=== PATIENT | female | born 1975 | race Caucasian/White ===

== ENCOUNTER → 2019-02-27 15:19 | Outpatient (CLI) | payer OTHER, MEDICAID, SELFPAY ==
--- NOTE | 2019-02-27 | DI.MRI.S_ITS ---
PROCEDURE: MR LUMBAR SPINE WO CON INDICATIONS: Lumbago with sciatica, left side TECHNIQUE: Noncontrast sagittal T1 spin echo and T2 fast echo, sagittal STIR, axial T1 and T2 fast spin echo through the lumbar spine. In cases with scoliosis, additional coronal T2 fast spin echo may be performed. COMPARISON: None. FINDINGS: Image quality: Diagnostic. Spinal Cord: The imaged portions of the spinal cord are normal in size and signal. The conus medullaris is normal in position. Paraspinous Soft Tissues: No paravertebral masses. Image soft tissues of the abdomen and pelvis are grossly unremarkable; however, not adequately evaluated on this exam. The abdominal aorta is normal in course and caliber. Bones: The vertebral body heights and marrow signal are within normal limits. There is no acute fracture or dislocation. Incidental note is made of a limbus vertebra and on anterosuperior L4 endplate. No suspicious osseous lesions are identified. Lower thoracic levels: No significant degenerative changes of the included lower thoracic levels are present. There is no central canal or neural foraminal narrowing at these levels. L1-L2: There is mild disc bulge without significant facet arthrosis. There is no central canal or neural foraminal narrowing. There is no central canal or neural foraminal stenosis. L2-L3: There is mild disc height loss and a diffuse disc bulge with possible early facet arthrosis. A small hemangioma involving the superior aspect of the L3 endplate probably is present. There is no central canal or neural foraminal narrowing. L3-L4: There is moderate disc height loss, moderate diffuse disc bulge, posterior disc osteophyte complex, disc desiccation, and mild facet arthropathy. There is associated mild central canal stenosis without significant neural foraminal narrowing. L4-L5: There is mild disc desiccation and diffuse disc bulge with [id number] facet arthropathy. There is no central canal stenosis or significant neural foraminal narrowing. L5-S1: There is mild diffuse disc bulge with a more focally prominent bulge/protrusion identified within the left foraminal region with an associated annular fissure. Mild facet arthrosis is present. There is no central canal stenosis. There is moderate left neural foraminal narrowing. No significant right neural foraminal stenosis is identified. IMPRESSION: 1. Reni-xl-tuvhlhld degenerative changes of the lower lumbar spine. No disc extrusions. 2. Small left foraminal disc protrusion with an associated annular fissure at L5-S1 results in moderate left neural foraminal narrowing. 3. Mild central canal stenosis at L3-4. Dictated by: Everett Frank M.D. on 02/27/2019 at 15:20 Approved by: Everett Frank M.D. on 02/27/2019 at 15:26
== END ==
PROVIDERS: PCP Nurse Practitioner Family; Visit Provider Nurse Practitioner Family
DX: M47.26 Other spondylosis with radiculopathy, lumbar region (principal); M47.27 Other spondylosis with radiculopathy, lumbosacral region; M51.17 Intervertebral disc disorders with radiculopathy, lumbosacral region; M48.061 Spinal stenosis, lumbar region without neurogenic claudication; M48.07 Spinal stenosis, lumbosacral region
CPT/HCPCS: 72148

== ENCOUNTER → 2022-04-25 15:17 | Outpatient (CLI) | payer OTHER, MEDICAID, SELFPAY ==
--- NOTE | 2022-04-25 15:23 | DI.RAD.S_ITS ---
PROCEDURE: XR THORACIC SPINE 3V INDICATIONS: Thoracic back pain TECHNIQUE: 3 views of the thoracic spine were acquired. COMPARISON: None. FINDINGS: Bones: No fractures or dislocations. No suspicious bony lesions. Visualized ribs are intact. Multilevel disc space narrowing and endplate osteophyte formation throughout the cervical and thoracic spine. Soft tissues: No paravertebral stripe thickening. IMPRESSION: Multilevel degenerative disc disease. No acute fracture. No osseous lesion. If symptoms and/or clinical suspicion for pathology persist, further assessment with repeat, or advanced imaging (e.g., CT, MRI, or bone scan) may be helpful for further assessment. Dictated by: Shawnee Brownlee M.D. on 04/26/2022 at 8:45 Approved by: Shawnee Brownlee M.D. on 04/26/2022 at 8:45
--- NOTE | 2022-04-25 15:23 | DI.RAD.S_ITS ---
PROCEDURE: XR HIP W PEL IF DONE RT 2V INDICATIONS: right hip pain TECHNIQUE: AP pelvis with lateral view(s) of the right hip(s). COMPARISON: None. FINDINGS: Bones: No fractures or dislocations. Pelvic ring appears intact. No suspicious bony lesions. Moderate right hip joint space narrowing. Mild left hip joint space narrowing. Mild right greater than left bilateral hip joint periarticular osteophyte formation. Soft tissues: The visualized bowel gas pattern is normal. No suspicious soft tissue calcifications. IMPRESSION: Bilateral hip osteoarthritis. No acute fracture. No osseous lesion. If symptoms and/or clinical suspicion for pathology persist, further assessment with repeat, or advanced imaging (e.g., CT, MRI, or bone scan) may be helpful for further assessment. Dictated by: Shawnee Brownlee M.D. on 04/25/2022 at 16:56 Approved by: Shawnee Brownlee M.D. on 04/25/2022 at 16:57
--- NOTE | 2022-04-25 15:23 | DI.RAD.S_ITS ---
PROCEDURE: XR LUMBAR SPINE MIN 4V INDICATIONS: Low Back Pain TECHNIQUE: 5 views of the lumbar spine were acquired, including bilateral oblique views. COMPARISON: None. FINDINGS: Bones: 5 nonrib-bearing vertebrae are present. There is normal bony alignment. No vertebral body compression fractures. No suspicious bony lesions. Pars interarticularis are not well seen. Multilevel disc space narrowing and endplate osteophyte formation. Facet hypertrophy throughout the mid and lower lumbar spine. Irregularity of the anterosuperior L4 endplate, possibly secondary to chronic Scheuermann's disease or remote trauma. Soft tissues: Overlying bowel gas pattern is normal. No suspicious soft tissue calcifications. IMPRESSION: 1. Multilevel degenerative disc and facet disease. 2. No acute fracture. No osseous lesion. If symptoms and/or clinical suspicion for pathology persist, further assessment with repeat, or advanced imaging (e.g., CT, MRI, or bone scan) may be helpful for further assessment. Dictated by: Shawnee Brownlee M.D. on 04/26/2022 at 8:44 Approved by: Shawnee Brownlee M.D. on 04/26/2022 at 8:45
== END ==
PROVIDERS: PCP Nurse Practitioner Family; Referring Provider Anesthesiology; Visit Provider Anesthesiology
DX: M16.0 Bilateral primary osteoarthritis of hip (principal); M47.26 Other spondylosis with radiculopathy, lumbar region; M51.16 Intervertebral disc disorders with radiculopathy, lumbar region; M51.14 Intervertebral disc disorders with radiculopathy, thoracic region; M25.551 Pain in right hip; M54.50 Low back pain, unspecified
CPT/HCPCS: 72072; 72110; 73502; 99214